=== PATIENT | female | born 1945 | race Caucasian/White ===

== ENCOUNTER 2016-12-19 07:53 | Day surgery (SDC) | payer MEDICARE, OTHER ==
[~2016-12-19 07:53] MED LIST: ADVAIR230P INH; AMB10 PO; ATV1 PO; LIOR10 PO; MAXIMUM D3 PO; MULTI-VIT HP PO; NORCO1 TAB PO; PROAIR HFA INH; PROTONIX PO; TOPAMAX100 PO; TRAZ100 PO; VOLT75 PO
== END 2016-12-19 10:35 | disposition home or self-care (01) ==
LOC: SDC 07:53
PROVIDERS: Orthopaedic Surgery
PROC: 3E0R3BZ Introduction of Anesthetic Agent into Spinal Canal, Percutaneous Approach (ICD-10-PCS; 2016-12-19)
PROC: 3E0R33Z Introduction of Anti-inflammatory into Spinal Canal, Percutaneous Approach (ICD-10-PCS; principal; 2016-12-19 08:15)
DX: M54.16 Radiculopathy, lumbar region (principal); M54.5 Low back pain; J45.909 Unspecified asthma, uncomplicated; M19.90 Unspecified osteoarthritis, unspecified site; M81.0 Age-related osteoporosis without current pathological fracture; K21.9 Gastro-esophageal reflux disease without esophagitis; H26.9 Unspecified cataract; K44.9 Diaphragmatic hernia without obstruction or gangrene; L30.9 Dermatitis, unspecified; Z88.0 Allergy status to penicillin; Z90.89 Acquired absence of other organs; Z90.49 Acquired absence of other specified parts of digestive tract; Z90.710 Acquired absence of both cervix and uterus; Z98.890 Other specified postprocedural states; Z79.899 Other long term (current) drug therapy
CPT/HCPCS: J1040; J2250; J3010; Q9967